=== PATIENT | male | born 1990 | race Caucasian/White ===

== ENCOUNTER 2016-10-16 18:08 | Emergency (ER) | payer OTHER ==
[~2016-10-16 18:08] MED LIST: CIPRO 500MG TA500 MG PO
--- NOTE | 2016-10-16 19:51 | ED GI/GU/ABDOMINAL COMPLAINT ---
History of Present Illness General Chief Complaint: Male Genitourinary Problems Stated Complaint: PAIN IN TESTICLE Source: patient Exam Limitations: no limitations Vital Signs & Intake/Output Vital Signs & Intake/Output Vital Signs Date Time Temp Pulse Resp B/P Pulse O2 O2 Flow FiO2 Ox Delivery Rate 10/16 2020 98.3 92 18 136/73 97 Room Air 10/16 1848 98.7 88 20 151/89 98 Room Air Room Air Allergies Coded Allergies: NO KNOWN ALLERGIES (03/02/14) Reconcile Medications No Known Home Medications Triage Note: PT TO ED WITH C/O LEFT TESTICULAR PAIN X 1 WEEK, HAS APPT WITH , BUT "PAIN RAMPED UP THE LAST COUPLE OF DAYS". Triage Nurses Notes Reviewed? yes HPI: This patient is a 26-year-old male who presented to the emergency department today for evaluation of left testicular pain 1 week. The patient reported that the pain began approximately one week ago after he was doing a, "fat burning jog." He reported that after that time he started to have a, "1.5 out of 10," pain in his left testicle. He reported that today the pain worsened and got up to a 5 out of 10. The pain is currently a 1.5 out of 10. He was unable to describe the pain to me. He denied any radiation of the pain. The pain has been constant. The patient denied a chance of any STDs and refused any STD testing. The patient denied any trauma to the area he denied any urethral discharge. The patient denied any urinary burning, urgency, frequency, or blood in the urine. He denied any abdominal pain, nausea, vomiting, fevers, chills, or back pain (MORENA MELENDEZ PA-C) Past History Travel History Traveled to [place] past 21 day No Medical History Any Pertinent Medical History? 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 No (MORENA MELENDEZ PA-C) Review of Systems Review of Systems Constitutional: Reports: no symptoms. EENTM: Reports: no symptoms. Respiratory: Reports: no symptoms. Cardiovascular: Reports: no symptoms. GI: Reports: no symptoms. Genitourinary: Reports: see HPI. Musculoskeletal: Reports: no symptoms. Skin: Reports: no symptoms. Neurological/Psychological: Reports: no symptoms. All Other Systems: Reviewed and Negative (NORA TO,MORENA) Physical Exam Physical Exam Gastrointestinal: normal bowel sounds, soft, non-tender, no organomegaly Comments: Well-developed well-nourished person in no acute distress HEENT: Normal EENT exam, head normocephalic, moist mucous membranes Neck: Supple Back: Normal gait Respiratory: No respiratory distress. Speaking in full sentences Extremity: Normal and equal pulses Neuro: Alert oriented x3, cranial nerves II through XII grossly intact. Skin: No appreciable rash on exposed skin, skin is warm and dry. Psych: Mood and affect is normal Core Measures ACS in differential dx? No Severe Sepsis Present: No Septic Shock Present: No (NORA TO,MORENA) Progress Differential Diagnosis: appendicitis, biliary colic, bowel obstruction, colon cancer, diverticulitis, epididymitis, hernia, orchitis, prostatitis, pyelonephritis, STD, testicular torsion, ureterolithiasis, urinary retention, urethritis, UTI/pyelo Plan of Care: Orders Procedure Date/time Status CULTURE,URINE 10/16 1930 Active URINALYSIS 10/16 1930 Complete Laboratory Tests 10/16/161944: Urine Color YEL, Urine Clarity CLEAR, Urine pH 6.5, Ur Specific [place] 1.015, Urine Protein NEG, Urine Ketones NEG, Urine Nitrite NEG, Urine Bilirubin NEG, Urine Urobilinogen 0.2, Ur Leukocyte Esterase NEG, Ur Microscopic EXAM NOT REQUIRED, Urine Hemoglobin NEG, Urine Glucose NEG Microbiology 10/16 1944 URINE ROUT: Urine Culture - RECD Diagnostic Imaging: Viewed by Me: Ultrasound. Discussed w/RAD: Ultrasound. Radiology Impression: PATIENT: KATHY WAKEFIELD PRESENT AGE: 26 PATIENT ACCOUNT NO: [id number] : 88 LOCATION: [facility] ORDERING PHYSICIAN: ERNESTINA JACOBSEN SERVICE DATE: 10/16/16 EXAM TYPE: US - US-TESTICULAR EXAMINATION: US SCROTUM CLINICAL INFORMATION: Pain in testicles. Assess for torsion or hydrocele. COMPARISON: Ultrasound 03/02/2014. TECHNIQUE: A sonogram of the scrotum was performed assessing gutierrez-scale appearance and color Doppler flow. FINDINGS: RIGHT: The right testis measures 4.3 x 2.4 x 3.4 cm, volume 24.9 mL. Parenchymal echotexture is normal. No focal testicular parenchymal lesions are visualized. Normal symmetric intratesticular flow is visualized. The right epididymal head is normal in size; there is a 0.3 cm cyst. No right hydrocele or varicocele is seen. LEFT: The left testis measures 3.6 x 2.3 x 3.3 cm, volume 19.4 mL. Parenchymal echotexture is normal. No focal testicular parenchymal lesions are visualized. Normal symmetric intratesticular flow is visualized. The left epididymal head is normal in size. No left hydrocele or varicocele is seen. IMPRESSION: 1. There is normal symmetrical flow to both testes. 2. There is a small right epididymal head cyst. 3. There are no varicoceles or hydroceles. DICTATED BY: ROXIE HUTCHINS MD DATE/TIME DICTATED:10/16 CONTINGENTS SUPERVISOR:FRANCESCO DATE/TIME TRANSCRIBED:10/16/161933 CONFIDENTIAL, DO NOT COPY WITHOUT APPROPRIATE AUTHORIZATION. <Electronically signed in Other Vendor System> SIGNED BY: ROXIE HUTCHNIS MD 10/16/161949 Initial ED EKG: none Comments: 10/16/2016 8:23:11 PM: This patient has an appointment scheduled for next Friday with the urologist. He refused testicular examination. he also refused any STD testing. This patient will be discharged outpatient urology follow-up (MORENA MELENDEZ PA-C) Departure Departure Disposition: HOME OR SELF CARE Condition: Stable Clinical Impression Primary Impression: Testicular pain Referrals: PATIENT HAS NO PRIMARY CARE DR (PCP/Family) ZACH MACE MD Additional Instructions: Please attend your previously scheduled appointment with the urologist. Return to the emergency Department for any worsening symptoms or concerns. Departure Forms: Customer Survey General Discharge Information Prescriptions: Current Visit Scripts No Known Home Medications (MORENA MELENDEZ PA-C) PA/WASTEWATER TREATMENT SUPERVISOR Co-Sign Statement Statement: ED Attending supervision documentation- [] I saw and evaluated the patient. I have also reviewed all the pertinent lab results and diagnostic results. I agree with the findings and the plan of care as documented in the PA's/WASTEWATER TREATMENT SUPERVISOR's documentation. [X] I have reviewed the ED Record and agree with the PA's/WASTEWATER TREATMENT SUPERVISOR's documentation. [] Additions or exceptions (if any) to the PAs/WASTEWATER TREATMENT SUPERVISOR's note and plan are summarized below: [] (FABY MARQUES,CLINTON)
[2016-10-16 20:21] VITALS: BP 136/73
== END 2016-10-16 20:33 ==
LOC: ERH 18:08
DX: N50.812 Left testicular pain (principal)
CPT/HCPCS: 81003; 87086

== ENCOUNTER 2017-03-01 16:23 | Emergency (ER) | payer OTHER ==
[~2017-03-01] VITALS: Ht 170.2 cm; Wt 92.1 kg
[2017-03-01 16:28] VITALS: BP 136/88
--- NOTE | 2017-03-01 17:14 | ED GI/GU/ABDOMINAL COMPLAINT ---
History of Present Illness General Chief Complaint: General Adult Stated Complaint: PT THINKS HE HAS A APPendagitis Source: patient Exam Limitations: no limitations Vital Signs & Intake/Output Vital Signs & Intake/Output Vital Signs Date Time Temp Pulse Resp B/P B/P Pulse O2 O2 Flow FiO2 Mean Ox Delivery Rate 03/01 1650 Room Air 03/01 1628 97.7 90 18 136/88 97 Room Air Room Air ED Intake and Output 03/02 0000 03/01 1200 Intake Total Output Total Balance Patient 92.079 kg Weight Weight Reported by Patient Measurement Method Allergies Coded Allergies: NO KNOWN ALLERGIES (03/02/14) Reconcile Medications No Known Home Medications Triage Note: TRIAGE: 27 Y/O MALE PRESENTS C/O "I THINK I HAVE APPENDICITIS - 6 WEEKS AGO, I HAD NAUSEA; THEN 2 WEEKS AGO THE NAUSEA GOT WORSE. 1 WEEK AGO, I COULDN'T TELL EXACTLY WHERE THE ABDOMINAL PAIN WAS. IN THE LAST FEW HOURS IT HAS RATCHETED UP RIGHT INTO THE RIGHT SIDE OF MY ABDOMEN AND A DRAMATIC INCREASE OF DIARRHEA. AND THAT IS WHY I BELIEVE IT IS APPENDICITIS." C/O PAIN 2/10 X DAYS. Triage Nurses Notes Reviewed? yes HPI: 27M NO PMH REPORTS EPISODE OF NAUSEA 6 WEEKS AGO AND THEN AGAIN 2 WEEKS AGO, EXPERIENCED RLQ PAIN LAST NIGHT WITH 3 EPISODES OF LOOSE NON-BLOODY STOOLS OVERNIGHT, FEELS BETTER TODAY. DENIES PAIN AT THIS TIME. DENIES FEVER, CHILLS, HEADACHE, CHEST PAIN, SOB, ABDOMINAL PAIN, NAUSEA, VOMITING, DIARRHEA, CONSTIPATION, MELENA, BLOOD STOOLS, RECTAL PAIN. Past History Travel History Traveled to [place] past 21 day No Medical History Any Pertinent Medical History? see below for history Neurological: NONE EENT: NONE Cardiovascular: NONE Respiratory: NONE Gastrointestinal: NONE Hepatic: NONE Renal: NONE Musculoskeletal: NONE Psychiatric: NONE Endocrine: NONE Blood Disorders: NONE Cancer(s): NONE DREDGE HAND/Reproductive: NONE Tetanus Vaccine: 10/01/15 Surgical History Surgical History: non-contributory Psychosocial History What is your primary language Setswana Tobacco Use: Never used ETOH Use: occasional use Illicit Drug Use: denies illicit drug use Family History Hx Contributory? No Review of Systems Review of Systems Constitutional: Reports: no symptoms. EENTM: Reports: no symptoms. Respiratory: Reports: no symptoms. Cardiovascular: Reports: no symptoms. GI: Reports: see HPI. Genitourinary: Reports: no symptoms. Musculoskeletal: Reports: no symptoms. Skin: Reports: no symptoms. Neurological/Psychological: Reports: no symptoms. Hematologic/Endocrine: Reports: no symptoms. Immunologic/Allergic: Reports: no symptoms. All Other Systems: Reviewed and Negative Physical Exam Physical Exam General Appearance: well developed/nourished, no apparent distress, alert, awake Head: atraumatic, normal appearance Eyes: Bilateral: normal appearance. Ears, Nose, Throat, Mouth: hearing grossly normal, moist mucous membrane Neck: normal inspection, supple, full range of motion Respiratory: normal breath sounds, chest non-tender, no respiratory distress Cardiovascular: regular rate/rhythm Gastrointestinal: normal bowel sounds, soft, non-tender, no organomegaly Back: normal inspection, normal range of motion Extremities: normal range of motion Neurologic/Psych: no motor/sensory deficits, awake, alert, oriented x 3, normal gait Core Measures ACS in differential dx? No Severe Sepsis Present: No Septic Shock Present: No Progress Differential Diagnosis: AAA, AMI, appendicitis, biliary colic, bowel obstruction , colon cancer, cholecystitis, diverticulitis, epididymitis, esophageal varices, gastritis, hepatitis, hernia, hemorrhoids, ischemic bowel, inflamm bowel dis, Radhika-Mindi tear, orchitis, pancreatitis, prostatitis, peptic ulcer, PUD/GERD, perforated viscous, pyelonephritis, SBO, STD, testicular torsion, ureterolithiasis, urinary retention, urethritis, UTI/pyelo Plan of Care: Orders Procedure Date/time Status Add-on Test (ER Only) 03/01 1713 Active URINALYSIS 03/01 1630 Complete C-REACTIVE PROTEIN 03/01 1630 Complete COMPREHENSIVE METABOLIC PANEL 03/01 1630 Complete CBC WITHOUT DIFFERENTIAL 03/01 1630 Complete Laboratory Tests 03/01/17 1730: Anion Gap 13, Estimated GFR > 60, BUN/Creatinine Ratio 22.5, Glucose 89, Calcium 10.1, Total Bilirubin 0.6, AST 22, ALT 63, Alkaline Phosphatase 68, C-Reactive Prot, Quant < 0.5, Total Protein 7.7, Albumin 4.9, Globulin 2.8, Albumin/ Globulin Ratio 1.8, CBC w Diff NO MAN DIFF REQ, RBC 5.15, MCV 89.9, MCH 30.0, RDW 12.7, MPV 8.9, Gran % 65.4, Lymphocytes % 26.4, Monocytes % 6.5, Eosinophils % 1.5, Basophils % 0.2, Absolute Granulocytes 5.8, Absolute Lymphocytes 2.3, Absolute Monocytes 0.6, Absolute Eosinophils 0.1, Absolute Basophils 0, PUBS MCHC 33.4 03/01/17 1645: Urine Color YEL, Urine Clarity CLEAR, Urine pH 6.0, Ur Specific [place] <= 1.005 , Urine Protein NEG, Urine Ketones NEG, Urine Nitrite NEG, Urine Bilirubin NEG, Urine Urobilinogen 0.2, Ur Leukocyte Esterase NEG, Ur Microscopic EXAM NOT REQUIRED, Urine Hemoglobin NEG, Urine Glucose NEG CBC, CMP, CRP SENT, ALL NORMAL. ABDOMINAL EXAM IS COMPLETELY BENIGN WITH NO EVIDENCE OF ACUTE ABDOMEN, NO TENDERNESS, NO REBOUND TENDERNESS OR GUARDING. (AZEEM MARQUES,MORIS) Initial ED EKG: NOT DONE BECAUSE UNNECESSARY Departure Departure Time of Disposition: 1819 Disposition: HOME OR SELF CARE Condition: Stable Clinical Impression Primary Impression: RLQ abdominal pain Referrals: HEBER MELO DO PATIENT HAS NO PRIMARY CARE DR (PCP/Family) ALMA DELIA MCCLAIN MD Additional Instructions: FOLLOW UP WITH YOUR NEW PCP. Departure Forms: Customer Survey General Discharge Information Prescriptions: Current Visit Scripts No Known Home Medications
[2017-03-01 17:41] LABS: ABSOLUTE BASOPHIL COUNT 0 /CUMM (0.0-0.2); ABSOLUTE EOSINOPHIL COUNT 0.1 /CUMM (0.0-0.7); ABSOLUTE GRANULOCYTE CT 5.8 /CUMM (1.4-6.5); ABSOLUTE LYMPH COUNT 2.3 /CUMM (1.2-3.4); ABSOLUTE MONOCYTE COUNT 0.6 /CUMM (0.10-0.60); BASOPHIL % 0.2 % (0.0-2.0); EOSINOPHIL % 1.5 % (0-5); GRANULOCYTE % 65.4 % (42.2-75.2); HEMATOCRIT 46.3 % (42-52); MEAN CORPUSCULAR HGB CONC 33.4 G/DL (33.0-37.0); MEAN CORPUSCULAR VOLUME 89.9 FL (80.0-94.0); MEAN PLATELET VOLUME 8.9 FL (7.4-10.4); PLATELET COUNT 336 /CUMM (130-400); RBC DISTRIBUTION WIDTH 12.7 % (11.5-14.5); RED BLOOD CELL CT 5.15 /CUMM (4.70-6.10); WHITE BLOOD CELL COUNT 8.9 /CUMM (4.8-10.8)
== END 2017-03-01 18:30 ==
LOC: ERH 16:23
PROVIDERS: Physician Assistant Medical
DX: R10.31 Right lower quadrant pain (principal)
CPT/HCPCS: 81003

== ENCOUNTER 2017-09-25 16:54 | Emergency (ER) | payer OTHER ==
[~2017-09-25] VITALS: Ht 170.2 cm; Wt 93.0 kg
[~2017-09-25 16:54] MED LIST changes: +AMOXICILLIN875 M1 PO
[2017-09-25 17:07] VITALS: BP 146/81
--- NOTE | 2017-09-25 17:51 | ED HAND/WRIST INJURY COMPLAINT ---
History of Present Illness General Chief Complaint: Upper Extremity Problem Stated Complaint: PER PT MUSCLE FATIGUE/SHAKEY IN ARMS Source: patient, old records Exam Limitations: no limitations Vital Signs & Intake/Output Vital Signs & Intake/Output Vital Signs Date Time Temp Pulse Resp B/P B/P Pulse O2 O2 Flow FiO2 Mean Ox Delivery Rate 09/25 1757 Room Air 09/25 1707 98.1 92 15 146/81 96 Room Air Room Air Allergies Coded Allergies: No Known Allergies (09/25/17) Reconcile Medications No Known Home Medications Triage Note: PT TO ED FOR C/C OF FULL BODY ACHES WITH SHAKING X 1 MONTH. SEEN HERE BEFORE FOR SAME. PT STATES, "I'M MAINLY HERE BECAUSE I HAD A PANIC ATTACK OVER THIS." PT ABLE TO WALK INDEPENDENTLY WITHOUT DIFFICULTY. +STEADY GAIT. Triage Nurses Notes Reviewed? yes Duration: constant (x 1 month) Timing: recent history Injury Environment: home Severity: moderate Severity Numbers: 7 Pain/Injury Location: Bilateral: Arm. Method of Injury: unknown No Modifying Factors: none HPI: 27-year-old male who is been seen in this emergency room multiple times for similar complaints presents again today complaining of bilateral arm spasms and shaking having going on for over a month after he had an MRI of his head and neck. The patient states he had an MRI because he was having soreness and muscle fatigue throughout this body with weightbearing. He states the MRI was unremarkable. He states she's been under increased stress at home for his living conditions with his mother. He does not take any medicine on a regular basis. He had blood work performed here 5 days ago that showed a calcium of 10.7. He states that he went home and googled wht can cause high calcium and is concerned that he has cancer. He saw his primary care physician today who sent him for further blood tests including a vitamin D and parathyroid. The patient denies any abdominal pain chest pain shortness of breath. He is never been on medication for his panic attacks which he states are becoming more severe secondary to his symptoms. He denies SI HI. He is never been seen by psychiatrist. When questioned if the patient like to speak with crisis today he states that he is setting up speaking with the psychiatrist on an outpatient and does not want be here long (Alesha JACOBSEN,Zhen) Past History Travel History Traveled to [place] past 21 day No Medical History Any Pertinent Medical History? 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 No (Zhen Melton) Review of Systems Review of Systems Constitutional: Reports: see HPI. Comments Review of systems: See HPI, All other systems negative. Constitutional, no chills no fever, no malaise no weight loss HEENT: no sore throat no congestion, no ear pain Cardiovascular: No chest pain , no palpitation Skin: no rashes, no change in skin Respiratory: No dyspnea no cough no sputum no hemoptysis GI: No nausea no vomiting, no diarrhea, no bloating/constipation : No dysuria No hematuria, no frequency Muscle skeletal: No joint pain, no back pain, no neck pain, Neurologic: , no headache Psych: No stress no depression,. Heme/endocrine: No bruising no bleeding Immunology: No lymphadenopathy (Zhen Melton) Physical Exam Physical Exam General Appearance: well developed/nourished, no apparent distress, alert Hand Left: normal inspection Hand Right: normal inspection Comments: Well-developed well-nourished patient in no apparent distress. HEENT: Atraumatic, extraocular motion intact Neck: Supple, FROM Back: FROM Cardiovascular: Regular rate and rhythms no murmurs rubs or gallops, Respiratory: Chest nontender.There were no bony deformities, no asymmetry. No respiratory distress. Patient speaking in full complete sentences. Breath sounds clear to auscultation bilaterally: NO W/R/R Shoulder: Atraumatic/Stable. FROM . Elbow: Atraumatic/stable. FROM. No laxity Upper arm/Forearm: Atraumatic. Nontender. No edema, 5 out of 5 help desk technician strength noted to bilateral upper extremities Hand/Wrist: Atraumatic/stable. Skin intact. FROM Pulses: Normal/equal radial pulses bilaterally. Brisk cap refill lower Extremities: full range of motion Neuro: awake, alert, and oriented to person, place and time. There were no obvious focal neurologic abnormalities. Skin: Warm & dry;No appreciable rash on exposed skin Psych: Mood affect normal, normal memory normal judgment. (Zhen Melton) Progress Differential Diagnosis: electrolyte abnoramity, anxiety Plan of Care: Orders Procedure Date/time Status COMPREHENSIVE METABOLIC PANEL 09/25 1805 Complete CALCIUM 09/25 1805 Complete Laboratory Tests 09/25/17 1828: Anion Gap 17 H, Estimated GFR > 60, BUN/Creatinine Ratio 18.3, Glucose 96, Calcium 10.1, Total Bilirubin 0.6, AST 24, ALT 59, Alkaline Phosphatase 77, Total Protein 7.8, Albumin 5.1 H, Globulin 2.7, Albumin/Globulin Ratio 1.9 I spoke with the patient's primary care physician Dr. blevins over the phone who states that she attempted to talk the patient out of coming back to the emergency room today. She states that she believes his symptoms are also attributed to his panic and anxiety and is requesting that if he can be seen by psychiatrist today. The patient is refusing speaking with crisis he denies SI HI he is requesting repeat calcium level. he is not intoxicated or impaired, pt has been thoroughly educated on and i highly recommeneded he stay to speak with crisis to at least set up outpatient pysch follow up if inpatient is not warranted which the pt is refusing. h I discussed with the patient at length all of their results. A copy of the lab work was provided to the patient A long discussion with the patient in terms of sending him home with medication to help with his anxiety, panic attacks including Vistaril or Ativan both of which he is refusing. I had an extensive conversation regarding need for close follow up with their primary care physician this week as well as return precautions. I answered all of their questions, they feel comfortable with the plan and follow-up care. (Zhen Melton) Departure Departure Disposition: HOME OR SELF CARE Condition: Stable Clinical Impression Primary Impression: Anxiety Secondary Impressions: Muscle fatigue Referrals: Patient Has No Primary Care Dr (PCP/Family) Departure Forms: Customer Survey General Discharge Information Prescriptions: Current Visit Scripts No Known Home Medications (Zhen Melton) PA/FARM EQUIPMENT OPERATOR Co-Sign Statement Statement: ED Attending supervision documentation- I saw and evaluated the patient. I have also reviewed all the pertinent lab results and diagnostic results. I agree with the findings and the plan of care as documented in the PA's/FARM EQUIPMENT OPERATOR's documentation. x I have reviewed the ED Record and agree with the PA's/FARM EQUIPMENT OPERATOR's documentation. [] Additions or exceptions (if any) to the PAs/FARM EQUIPMENT OPERATOR's note and plan are summarized below: [] (Lana MARQUES,Tung)
== END 2017-09-25 19:36 ==
LOC: ERH 16:54
DX: F41.9 Anxiety disorder, unspecified (principal); M62.89 Other specified disorders of muscle

== ENCOUNTER 2018-01-04 23:02 | Emergency (ER) | payer OTHER ==
[~2018-01-04] VITALS: Ht 170.2 cm; Wt 91.6 kg
[2018-01-04 23:20] VITALS: BP 146/91
--- NOTE | 2018-01-05 00:26 | ED GI/GU/ABDOMINAL COMPLAINT ---
History of Present Illness General Chief Complaint: Abdominal Pain/Flank Pain Stated Complaint: ABDOMINAL PAIN ON RT SIDE Source: patient Exam Limitations: no limitations Vital Signs & Intake/Output Vital Signs & Intake/Output Vital Signs Date Time Temp Pulse Resp B/P B/P Pulse O2 O2 Flow FiO2 Mean Ox Delivery Rate 01/04 2320 98.4 85 18 146/91 98 Room Air ED Intake and Output 01/05 0000 01/04 1200 Intake Total Output Total Balance Patient 202 lb Weight Weight Estimated Measurement Method Allergies Coded Allergies: No Known Allergies (09/25/17) Reconcile Medications No Known Home Medications Triage Note: RECEIVED 27 YO MALE C/O RLQ ADOMINAL PAIN, STARTED APPROX ONE -TWO MONTHS AGO, BUT IT IS GETTING PROGRESSIVELY WORSE AND MORE FREQUENT WITHIN THE LAST WEEK. NO C/O N/V/D. NO FEVERS. PT REPORTS SOME TENDERNESS TO AREA AND PAIN SEEMS TO WORSEN WITH SOME MOVMENTS Triage Nurses Notes Reviewed? yes Onset: Gradual Duration: week(s):, waxing and waning Timing: recent history Quality/Severity: cramping Location: generalized abdomen Radiation: no radiation Activities at Onset: none Prior Abdominal Problems: similar symptoms Modifying Factors: Worsens With: palpation. Associated Symptoms: abdominal pain HPI: 27 yo gentleman presents with 2 month history of diffuse abdominal pain in right flank and right lower abdomen. He notes no nausea, vomiting, diarrhea, chills, dysuria, polyuria. He states, "I looked it up on google and it might be appendicitis... I want to make sure it's not appendicitis." Past History Travel History Traveled to [place] past 21 day No Medical History Any Pertinent Medical History? 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 No Review of Systems Review of Systems Constitutional: Reports: no symptoms. EENTM: Reports: no symptoms. Respiratory: Reports: no symptoms. Cardiovascular: Reports: no symptoms. GI: Reports: no symptoms. Genitourinary: Reports: no symptoms. Musculoskeletal: Reports: no symptoms. Skin: Reports: no symptoms. Neurological/Psychological: Reports: no symptoms. Hematologic/Endocrine: Reports: no symptoms. Immunologic/Allergic: Reports: no symptoms. All Other Systems: Reviewed and Negative Physical Exam Physical Exam General Appearance: well developed/nourished, no apparent distress Head: atraumatic, normal appearance Eyes: Bilateral: normal appearance. Ears, Nose, Throat, Mouth: hearing grossly normal, moist mucous membrane Neck: normal inspection, supple, full range of motion Respiratory: normal breath sounds, chest non-tender, no respiratory distress, quiet respiration, lungs clear Cardiovascular: regular rate/rhythm Gastrointestinal: normal bowel sounds, soft, mild tenderness at right flank and right lower quadrant. no rebound. no guarding. no rosving's sign Back: normal inspection Extremities: normal range of motion Neurologic/Psych: no motor/sensory deficits, awake, alert, oriented x 3, anxious and slightly agitated Skin: intact, normal color, warm/dry Core Measures ACS in differential dx? No Sepsis Present: No Sepsis Focused Exam Completed? No Progress Differential Diagnosis: appendicitis vs musculoskeletal pain vs other. Plan of Care: Orders Procedure Date/time Status URINALYSIS 01/04 2322 Complete Current Medications Sig/Cornelius Start time Last Medication Dose Stop Time Status Admin Ibuprofen 800 MG ONCE ONE 01/05 0200 AC (Motrin) 01/05 0201 Laboratory Tests 01/05/18 0057: Total Bilirubin Cancelled, Direct Bilirubin Cancelled, AST Cancelled, ALT Cancelled, Alkaline Phosphatase Cancelled, Total Protein Cancelled, Albumin Cancelled, CBC w Diff Cancelled, WBC Cancelled, RBC Cancelled, Hgb Cancelled, Hct Cancelled, MCV Cancelled, MCH Cancelled, MCHC Cancelled, RDW Cancelled, Plt Count Cancelled, MPV Cancelled 01/04/18 2354: Urine Color YEL, Urine Clarity CLEAR, Urine pH 6.0, Ur Specific Glover >= 1.030 , Urine Protein NEG, Urine Ketones NEG, Urine Nitrite NEG, Urine Bilirubin NEG, Urine Urobilinogen 0.2, Ur Leukocyte Esterase NEG, Ur Microscopic EXAM NOT REQUIRED, Urine Hemoglobin NEG, Urine Glucose NEG Initial ED EKG: none Departure Departure Disposition: HOME OR SELF CARE Condition: Stable Clinical Impression Primary Impression: Abdominal pain Referrals: Unknown (PCP/Family) Departure Forms: Customer Survey General Discharge Information Prescriptions: Current Visit Scripts No Known Home Medications Comments 01/05/18, 1:46AM.... discussed with mr. Kemp at great length x 2.... I suggested labs and a ct scan to assess for concern for appendicities and/or kidney stones. He declines both, stating that a prior ct scan was very traumatic for him. He prefers to follow up with gastroenterology tomorrow. I discussed with him the risks and the benefits, including the risk of serious surgical emergency and . He expressed understanding at this. Close follow up encouraged.
== END 2018-01-05 02:02 ==
LOC: ERH 23:02
DX: R10.84 Generalized abdominal pain (principal)
CPT/HCPCS: 81003

== ENCOUNTER 2018-01-18 01:56 | Emergency (ER) | payer OTHER ==
[~2018-01-18] VITALS: Ht 170.2 cm; Wt 91.6 kg
[2018-01-18 02:13] VITALS: BP 139/93
--- NOTE | 2018-01-18 02:21 | ED GI/GU/ABDOMINAL COMPLAINT ---
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 STATES HE "WANTS TO BE CHECKED FOR GADOLIOUM POISONING" Triage Nurses Notes Reviewed? yes Onset: Gradual Duration: week(s):, waxing and waning Timing: recent history Quality/Severity: body aches Location: generalized abdomen HPI: 28yo gentleman presents to ER seeking to peform a 24 hour urine test for Gadolinium. "I had an MRI 6 months ago, and since then I've had body aches, cognitive decline, headaches.... I just feel like I have gadolinium toxicity." He notes intermittent headaches, without fever, chills, visual changes. He is otherwise well. Past History Travel History Traveled to [place] past 21 day No Medical History Any Pertinent Medical History? 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 No Review of Systems Review of Systems Constitutional: Reports: no symptoms. EENTM: Reports: no symptoms. Respiratory: Reports: no symptoms. Cardiovascular: Reports: no symptoms. GI: Reports: no symptoms. Genitourinary: Reports: no symptoms. Musculoskeletal: Reports: no symptoms. Skin: Reports: no symptoms. Neurological/Psychological: Reports: no symptoms. Hematologic/Endocrine: Reports: no symptoms. Immunologic/Allergic: Reports: no symptoms. All Other Systems: Reviewed and Negative Physical Exam Physical Exam General Appearance: well developed/nourished, anxious Head: atraumatic, normal appearance Eyes: Bilateral: normal appearance, PERRL, EOMI. Ears, Nose, Throat, Mouth: hearing grossly normal, moist mucous membrane Neck: normal inspection, supple, full range of motion Respiratory: normal breath sounds, chest non-tender, no respiratory distress, quiet respiration, lungs clear Cardiovascular: regular rate/rhythm Gastrointestinal: normal bowel sounds, soft, non-tender, no organomegaly Back: normal inspection, normal range of motion Extremities: normal range of motion Neurologic/Psych: no motor/sensory deficits, awake, alert, oriented x 3 Skin: intact, normal color, warm/dry Core Measures ACS in differential dx? No Sepsis Present: No Sepsis Focused Exam Completed? No Progress Differential Diagnosis: headache, myalgia, anxiety vs other. Plan of Care: Laboratory Tests 01/18/18 0214: Total Bilirubin Cancelled, Direct Bilirubin Cancelled, AST Cancelled, ALT Cancelled, Alkaline Phosphatase Cancelled, Total Protein Cancelled, Albumin Cancelled, CBC w Diff Cancelled, WBC Cancelled, RBC Cancelled, Hgb Cancelled, Hct Cancelled, MCV Cancelled, MCH Cancelled, MCHC Cancelled, RDW Cancelled, Plt Count Cancelled, MPV Cancelled Initial ED EKG: none Departure Departure Disposition: HOME OR SELF CARE Condition: Stable Clinical Impression Primary Impression: Myalgia Secondary Impressions: Headache Referrals: Unknown (PCP/Family) Departure Forms: Customer Survey General Discharge Information Prescriptions: Current Visit Scripts No Known Home Medications Comments 01/18/18, 2:55am... discussed at length... unable to perform 24 hour urine specimen collection... pt referred to his neurologist and pmd. he has an otherwise benign exam and benign prior evaluations in the ED.
== END 2018-01-18 03:05 ==
LOC: ERH 01:56
DX: M79.1 Myalgia (principal); R51 Headache